=== PATIENT | male | born 1945 | race Caucasian/White ===

== ENCOUNTER 2019-02-27 10:23 | Emergency (ER) | payer MEDICARE, OTHER ==
[2019-02-27] MEDS ORDERED: Triple Antibiotic Oint 1 GM Packet ONE (11:00)
[2019-02-27] MEDS ORDERED: Adacel (T-DAP) 0.5 ML SYRINGE ONE (11:00)
--- NOTE | 2019-02-27 11:27 | CT ---
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 FINDINGS: The brain is normal in morphology and attenuation without focal lesions or confluent areas of infarction. There is no evidence of hydrocephalus, intracranial hemorrhage, or extra-axial fluid collection. Soft tissue swelling is seen in the forehead. The calvarium is unremarkable. The visualized paranasal sinuses and mastoid air cells are well aerated. IMPRESSION: No evidence of acute intracranial abnormality
[2019-02-27 11:37] LABS: Bilirubin Negative (Negative); Blood, Urine Negative (Negative); Clarity Clear (Clear); Glucose, Urine (Dipstick) Negative (Negative); Leukocyte Negative (Negative); Nitrite Negative (Negative); Protein, Urine (Dipstick) Negative (Neg-Trace); Urobilinogen 0.2 mg/dL (Less than 2)
== END 2019-02-27 11:50 | disposition home or self-care (01) ==
LOC: BURERS 10:23
DX: S01.81XA Laceration without foreign body of other part of head, initial encounter (principal); I25.10 Atherosclerotic heart disease of native coronary artery without angina pectoris; E78.5 Hyperlipidemia, unspecified; E78.00 Pure hypercholesterolemia, unspecified; I10 Essential (primary) hypertension; Z95.1 Presence of aortocoronary bypass graft; Z23 Encounter for immunization; Z79.899 Other long term (current) drug therapy; Z79.82 Long term (current) use of aspirin; W55.22XA Struck by cow, initial encounter
CPT/HCPCS: 12013; 70450; 81003; 90471; 90715

== ENCOUNTER 2020-02-05 08:37 | Emergency (ER) | payer MEDICARE, OTHER ==
[2020-02-05 09:05] LABS: Bilirubin Negative (Negative); Blood, Urine Negative (Negative); Clarity Clear (Clear); Glucose, Urine (Dipstick) Negative (Negative); Ketone, Urine Negative (Negative); Leukocyte Negative (Negative); Nitrite Negative (Negative); Protein, Urine (Dipstick) Negative (Neg-Trace); Specific Gravity, Urine 1.025 (1.005-1.030); Urobilinogen 0.2 mg/dL (Less than 2)
[2020-02-05 09:38] LABS: #Basophils 0.1 thou/uL (0.0-0.2); #Eosinphils 0.1 thou/uL (0.0-0.7); #Lymphocytes 1.5 thou/uL (1.20-3.40); #Monocytes 0.5 thou/uL (0.11-0.59); #Neutrophils 3.2 thou/uL (1.40-6.50); %Basophils 1.3 % (0.0-1.0); %Eosinophils 2.5 % (0.0-10.0); %Lymphocytes 28.3 % (21.0-51.0); %Monocytes 8.5 % (0.0-10.0); %Neutrophils 59.4 % (42.0-75.0); Hemoglobin 13.8 g/dL (14.0-18.0); Mean Corpuscular HGB CONC 31.1 g/dL (32.0-36.0); Mean Corpuscular Hemoglobin 29.2 pg (27.0-31.0); Mean Corpuscular Volume 93.8 fL (78.0-98.0); Mean Platelet Volume 6.9 fL (7.4-10.4); Platelet Count 224 thou/uL (130-400); RBC Distribution Width 12.2 % (11.5-14.5); Red Blood Cell (RBC) Count 4.74 mill/uL (4.70-6.10); White Blood Cell (WBC) Count 5.3 thou/uL (4.8-10.8)
[2020-02-05 09:56] LABS: ALT (SGPT) 28 U/L (8-55); Albumin 3.9 g/dL (3.4-4.8); Alkaline Phosphatase 47 U/L (40-110); Anion Gap 15 mmol/L (10-20); BUN (Urea Nitrogen) 11 mg/dL (8.4-25.7); Bilirubin, Total 0.6 mg/dL (0.2-1.2); Calc. Creatinine Clearance 0 mL/min (70-130); Calcium 8.6 mg/dL (7.8-10.44); Carbon Dioxide 21 mmol/L (23-31); Chloride 108 mmol/L (98-107); Estimated GFR-MDRD 84; Globulin 2.6 g/dL (2.4-3.5); Glucose 169 mg/dL (83-110); Potassium 4.6 mmol/L (3.5-5.1); Protein, Total 6.5 g/dL (5.8-8.1); Sodium 139 mmol/L (136-145)
[2020-02-05 09:59] LABS: AST (SGOT) 22 U/L (5-34)
--- NOTE | 2020-02-05 13:15 | CT ---
CT ABDOMEN AND PELVIS WITH CONTRAST: DATE: 02/05/2020. FINDINGS: Spiral CT of the abdomen and pelvis was performed for evaluation of right-sided abdominal pain. The exam was done with IV contrast. The lung bases are clear. A moderate-sized hiatal hernia is present centrally. The liver, spleen, p ancreas, gallbladder, kidneys, and abdominal aorta showed no acute findings. There is a question of a 1.1 cm left adrenal nodule. I doubt its significance at this time, it could be followed in the fut ure. I would need a noncontrast scan to assess the odds of it being an adenoma a little better. The bowel shows no distention, wall thickening to suggest inflammatory change, or other acute finding s. The appendix appears normal. There is no sign of diverticulitis. No free air or free fluid was seen. There is a minimal fat-filled umbilical hernia that may have a small cyst in it. CT of the pelvis was remarkable for a very large prostate gland measuring about 6.4 cm in width. No pelvic masses, fluid collections, or inflammatory changes were seen. There is some concentric bulgin g of the L4-L5 disk. Some mild to moderate degenerative changes are seen in the lower lumbar spine. IMPRESSION: 1. No findings to explain the patient's right-sided abdominal pain. 2. Moderate-sized hiatal hernia. 3. Prostatic enlargement. Findings called to Dr. Ortiz at 10:44 on 02/05/2020. CODE CR POS: HOME
== END 2020-02-05 11:06 | disposition home or self-care (01) ==
LOC: BURERS 08:37
DX: M47.816 Spondylosis without myelopathy or radiculopathy, lumbar region (principal); I25.10 Atherosclerotic heart disease of native coronary artery without angina pectoris; E78.5 Hyperlipidemia, unspecified; E78.00 Pure hypercholesterolemia, unspecified; I10 Essential (primary) hypertension; Z79.899 Other long term (current) drug therapy; Z79.82 Long term (current) use of aspirin
CPT/HCPCS: 36415; 74177; 80053; 81003; 85025